=== PATIENT | female | born 1965 | race African-American/Black ===

== ENCOUNTER 2016-11-02 17:25 | Emergency (ER) | payer BC, OTHER ==
[~2016-11-02] VITALS: Ht 157.5 cm; Wt 70.0 kg
[~2016-11-02 17:25] MED LIST: GLIP1TAB18; IBUP-238; LISI-591; LORT5TAB; NEXI20CA; PROP20TA24
[2016-11-02 17:42] VITALS: BP 126/78; PULSE 98; RESP 17; TEMP 98.1; O2SAT 98
[2016-11-02] MEDS ORDERED: SODIUM CHLOR 0.9% 1000 ML INJ 1,000 ML IV ONE (17:52)
--- NOTE | 2016-11-02 17:58 | PD ---
HPI Chief Complaint: Chest Pain Time Seen by Provider: 17:58 Travel History International Travel<30 days: No Contact w/Intl Traveler<30days: No Traveled to known affect area: No History of Present Illness HPI 51 year-old female presents to the emergency department for evaluation of palpitations, chest pressure, dizziness intermittently occurring over the last 2 weeks. Patient stayed at [facility] last week for a period of 3 days for the very same symptoms. She states that she had many tests run but is uncertain which ones. She was discharged to follow-up outpatient. She came to our emergency department today stating that the symptoms continue to happen and she would like to know why. Denies any recent illnesses, fever, chills. Chest v is substernal and feels as though her heart is beating faster and harder. Denies any of the diaphoresis or lightheadedness associated with it. Dizziness is when she bends over and stands back up and feels as though she is slightly lightheaded at that time. Chest pressure in the dizziness does not seem to be related. Patient has no other symptoms to report at this time. PFSH Past Medical History Cardiovascular Problems: Yes (hypertension) Diabetes: Yes (type 2 ) Patient Takes Glucophage: Yes Diminished Hearing: No Hypertension: Yes Ulcer: Yes ?: Not Menopausal: Yes : 3 Para: 3 Past Surgical History Abdominal Surgery: Yes (C SECTIONS) Hysterectomy: Yes Social History Alcohol Use: No Tobacco Use: No Substance Use: No Allergies-Medications (Allergen,Severity, Reaction): Coded Allergies: No Known Allergies (Verified Allergy, Mild, 06/30/06) Reported Meds & Prescriptions Reported Meds & Active Scripts Active Reported Victoza Inj (Liraglutide Inj) 18 Mg/3 Ml Pen 0.6 Mg SQ DAILY Metformin (Metformin HCl) 1,000 Mg Tab 1,000 Mg PO BID With meals Metoprolol Tartrate 50 Mg Tab 50 Mg PO BID Amlodipine-Benazepril 10-20 Mg Cap 1 Cap PO DAILY Levothyroxine (Levothyroxine Sodium) 50 Mcg Tab 25-50 Mcg PO DAILY Simvastatin 10 Mg Tab 10 Mg PO DAILY Review of Systems Except as stated in HPI: all other systems reviewed are Neg Physical Exam Narrative GENERAL: Well-nourished female patient, ambulatory with a nonantalgic gait no acute distress SKIN: Focused skin assessment warm/dry. HEAD: Atraumatic. Normocephalic. EYES: Pupils equal and round. No scleral icterus. No injection or drainage. ENT: No nasal bleeding or discharge. Mucous membranes pink and moist. NECK: Trachea midline. No JVD. CARDIOVASCULAR: Elevated rate and rhythm. No murmur appreciated. RESPIRATORY: No accessory muscle use. Clear to auscultation. Breath sounds equal bilaterally. GASTROINTESTINAL: Abdomen soft, non-tender, nondistended. Hepatic and splenic margins not palpable. MUSCULOSKELETAL: No obvious deformities. No clubbing. No cyanosis. No edema. NEUROLOGICAL: Awake and alert. No obvious cranial nerve deficits. Motor grossly within normal limits. Normal speech. PSYCHIATRIC: Appropriate mood and affect; insight and judgment normal. Data Data Last Documented VS Vital Signs Date Time Temp Pulse Resp B/P Pulse Ox O2 Delivery O2 Flow Rate FiO2 11/02/16 22:06 89 14 138/74 98 11/02/16 18:10 Room Air 11/02/16 17:42 98.1 Orders Electrocardiogram (11/02/16 17:52) Basic Metabolic Panel (Bmp) (11/02/16 17:52) Complete Blood Count With Diff (11/02/16 17:52) Magnesium (Mg) (11/02/16 17:52) Prothrombin Time / Inr (Pt) (11/02/16 17:52) Urinalysis - C+S If Indicated (11/02/16 17:52) Chest, Single Ap (11/02/16 17:52) Ct Brain W/O Iv Contrast(Rout) (11/02/16 17:52) Ecg Monitoring (11/02/16 17:52) Iv Access Insert/Monitor (11/02/16 17:52) Oximetry (11/02/16 17:52) Sodium Chloride 0.9% Flush (Ns Flush) (11/02/16 18:00) Sodium Chlor 0.9% 1000 Ml Inj (Ns 1000 M (11/02/16 17:52) Al-Mag Hy-Si 40-40-4 Mg/Ml Liq (Mag-Al P (11/02/16 18:00) Lidocaine 2% Viscous (Xylocaine 2% Visco (11/02/16 18:00) Ckmb (Isoenzyme) Profile (11/02/16 17:59) Act Partial Throm Time (Ptt) (11/02/16 17:59) Troponin I (11/02/16 17:59) Ketorolac Inj (Toradol Inj) (11/02/16 19:30) Diphenhydramine Inj (Benadryl Inj) (11/02/16 19:30) Metoclopramide Inj (Reglan Inj) (11/02/16 19:30) Troponin I (11/02/16 21:18) Electrocardiogram (11/02/16 ) Labs Laboratory Tests Test 11/02/16 11/02/16 11/02/16 18:15 19:14 21:52 White Blood Count 8.3 TH/MM3 Red Blood Count 5.31 MIL/MM3 Hemoglobin 12.8 GM/DL Hematocrit 40.1 % Mean Corpuscular Volume 75.5 FL Mean Corpuscular Hemoglobin 24.2 PG Mean Corpuscular Hemoglobin 32.0 % Concent Red Cell Distribution Width 14.1 % Platelet Count 244 TH/MM3 Mean Platelet Volume 8.8 FL Neutrophils (%) (Auto) 45.5 % Lymphocytes (%) (Auto) 40.2 % Monocytes (%) (Auto) 12.7 % Eosinophils (%) (Auto) 1.2 % Basophils (%) (Auto) 0.4 % Neutrophils # (Auto) 3.8 TH/MM3 Lymphocytes # (Auto) 3.3 TH/MM3 Monocytes # (Auto) 1.0 TH/MM3 Eosinophils # (Auto) 0.1 TH/MM3 Basophils # (Auto) 0.0 TH/MM3 CBC Comment AUTO DIFF Differential Total Cells 100 Counted Neutrophils % (Manual) 35 % Band Neutrophils % 5 % Lymphocytes % 53 % Monocytes % 7 % Neutrophils # (Manual) 3.3 TH/MM3 Differential Comment FINAL DIFF MANUAL Toxic Vacuolation PRESENT Platelet Estimate NORMAL Platelet Morphology Comment ENLARGED Ovalocytes 1+ [place] Cells 1+ Keratocytes OCC Prothrombin Time 11.2 SEC Prothromb Time International 1.0 RATIO Ratio Activated Partial 23.1 SEC Thromboplast Time Sodium Level 141 MEQ/L Potassium Level 3.9 MEQ/L Chloride Level 105 MEQ/L Carbon Dioxide Level 28.1 MEQ/L Anion Gap 8 MEQ/L Blood Urea Nitrogen 8 MG/DL Creatinine 0.73 MG/DL Estimat Glomerular Filtration 102 ML/MIN Rate Random Glucose 114 MG/DL Calcium Level 9.6 MG/DL Magnesium Level 1.9 MG/DL Total Creatine Kinase 100 U/L Troponin I LESS THAN 0.02 LESS THAN 0.02 NG/ML NG/ML Urine Color LIGHT-YELLOW Urine Turbidity CLEAR Urine pH 7.0 Urine Specific [place] 1.011 Urine Protein NEG mg/dL Urine Glucose (UA) NEG mg/dL Urine Ketones NEG mg/dL Urine Occult Blood NEG Urine Nitrite NEG Urine Bilirubin NEG Urine Urobilinogen LESS THAN 2.0 MG/DL Urine Leukocyte Esterase TRACE Urine RBC 1 /hpf Urine WBC 2 /hpf Urine Squamous Epithelial <1 /hpf Cells Urine Bacteria RARE /hpf Microscopic Urinalysis Comment CULT NOT INDICATED MDM Medical Decision Making Medical Screen Exam Complete: Yes Emergency Medical Condition: Yes Medical Record Reviewed: Yes Differential Diagnosis Electrolytes abnormality versus palpitations versus bronchospasm versus esophageal spasm versus indigestion versus arrhythmia Narrative Course 51 year-old female presents to the emergency department for evaluation. Patient appears without distress. Her vital signs are stable here in the emergency department. CBC is without acute concern. BMP is also without acute concern. Troponin is less than 0.02. We have contacted [facility] for records to review findings from most recent hospital stay. 2100 and discussed the patient by attending physician Dr. Huston. We have not yet received the records from [facility]. She has reviewed the lab findings. Delta troponin will be ordered. If this is unchanged, patient will be discharged home. Plan is discussed with the patient and their family. They are in agreement with this plan of care. 2250 delta troponin is less than 0.02. Patient will be discharged home at this time. She is instructed to follow-up with her primary care provider and return immediately with any acute worsening of symptoms. Diagnosis Primary Impression: Palpitations Additional Impressions: Chest pressure Dizziness Referrals: Primary Care Physician Patient Instructions: General Instructions, Palpitations (ED) Additional Instructions: Follow-up with her primary care provider Continue all medications as already prescribed Return immediately with any acute worsening of symptoms Med/Other Pt SpecificInfo: No Change to Meds Disposition: 01 DISCHARGE HOME Condition: Stable AmariKarsonNoaraul NARANJO Nov 02, 2016 17:58
[2016-11-02] MEDS ORDERED: SODIUM CHLORIDE 0.9% FLUSH 10 ML FLUSH IVF PRN (18:00)
[2016-11-02] MEDS ORDERED: ALUMINUM/MAGNESIUM/SIMETH 30 ML CUP PO ONE (18:00)
[2016-11-02] MEDS ORDERED: LIDOCAINE VISCOUS 2% SOLN 15 ML UDC PO ONE (18:00)
[2016-11-02 18:10] VITALS: RESP 18; O2SAT 98
[2016-11-02] MEDS ORDERED: VICT18IN SQ (18:12)
[2016-11-02] MEDS ORDERED: SIMV10TA PO (18:12)
[2016-11-02] MEDS ORDERED: METO50TA PO (18:12)
[2016-11-02] MEDS ORDERED: AMLO10CA PO (18:12)
[2016-11-02] MEDS ORDERED: LEVO50TA4 PO (18:12)
[2016-11-02] MEDS ORDERED: METF1000 PO (18:12)
--- NOTE | 2016-11-02 18:43 | RADRPT ---
EXAM DATE/TIME: 11/02/2016 18:10 [facility] COMPARISON: No previous studies available for comparison. INDICATIONS : Dizziness with cephalgia for 2 weeks. RADIATION DOSE: 56.77 CTDIvol (mGy) MEDICAL HISTORY : Hypertension. Diabetes mellitus type 2. SURGICAL HISTORY : None. ENCOUNTER: Initial ACUITY: 2 weeks PAIN SCALE: 7/10 LOCATION: cranial Posterior TECHNIQUE: Multiple contiguous axial images were obtained of the head. Using automated exposure control and adj ustment of the mA and/or kV according to patient size, radiation dose was kept as low as reasonably a chievable to obtain optimal diagnostic quality images. FINDINGS: There is no evidence for intracranial hemorrhage, mass effect, mass lesions, edema, or extra-axial fl uid collections. The visualized bony structures appear intact. The ventricles are normal size for t he patient's age. There are no signs of acute infarction for technique. CONCLUSION: Unremarkable study. Bhumika Pena MD on November 02, 2016 at 18:41 Board Certified Radiologist. This report was verified electronically.
[2016-11-02 18:50] LABS: PROTHROMBIN TIME - PATIENT 11.2 SEC (9.8-11.6)
[2016-11-02 18:54] LABS: AUTOMATED NEUTROPHIL # 3.8 TH/MM3 (1.8-7.7); BASOPHIL % 0.4 % (0.0-2.0); EOSINOPHIL # 0.1 TH/MM3 (0-0.4); EOSINOPHIL % 1.2 % (0.0-4.0); HEMATOCRIT 40.1 % (35.0-46.0); LYMPH % 40.2 % (9.0-44.0); LYMPHOCYTE # 3.3 TH/MM3 (1.0-4.8); MEAN CELL VOLUME 75.5 FL (80.0-100.0); MEAN CORPUSCULAR HEMOGLOBIN 24.2 PG (27.0-34.0); MONO % 12.7 % (0.0-8.0); NEUT % 45.5 % (16.0-70.0); PLATELET COUNT 244 TH/MM3 (150-450); RED BLOOD COUNT 5.31 MIL/MM3 (4.00-5.30); RED CELL DISTRIBUTION WIDTH 14.1 % (11.6-17.2); WHITE BLOOD COUNT 8.3 TH/MM3 (4.0-11.0)
--- NOTE | 2016-11-02 18:55 | RADRPT ---
EXAM DATE/TIME: 11/02/2016 18:24 [facility] COMPARISON: No previous studies available for comparison. INDICATIONS : Patient has had continuous chest pain. Patient was at [facility] over the weekend for t he same complaint. MEDICAL HISTORY : None. SURGICAL HISTORY : None. ENCOUNTER: Initial ACUITY: 1 week PAIN SCORE: 8/10 LOCATION: Bilateral chest FINDINGS: The lungs are clear without infiltrate, nodule, or mass. There is no appreciable pleural effusion fo r technique. Heart and mediastinum are unremarkable. There is prominence of the perivascular marking s with crowding of the bronchovascular markings may be due to expiratory state of this radiograph, ho wever slight interstitial process is not excluded. CONCLUSION: No definite acute cardiopulmonary disease. Bhumika Pena MD on November 02, 2016 at 18:53 Board Certified Radiologist. This report was verified electronically.
[2016-11-02 18:57] LABS: BICARBONATE 28.1 MEQ/L (21.0-32.0); MAGNESIUM 1.9 MG/DL (1.5-2.5); POTASSIUM 3.9 MEQ/L (3.5-5.1)
[2016-11-02 19:00] VITALS: BP 150/82; PULSE 96; RESP 18; O2SAT 97
[2016-11-02 19:05] LABS: APTT (PATIENT) 23.1 SEC (24.3-30.1)
[2016-11-02 19:21] LABS: CREATINE KINASE 100 U/L (26-192)
[2016-11-02 19:27] LABS: HEMO FLAGS AUTO DIFF
[2016-11-02 19:28] LABS: BACTERIA, URINE RARE /hpf; BLOOD, URINE NEG (NEG); COMMENT (UR) CULT NOT INDICATED; CULTURE IF INDICATED CULT NOT INDICATED; GLUCOSE,URINE NEG (NEG); KETONE, URINE NEG (NEG); NITRITE,URINE NEG (NEG); SQUAMOUS EPITHELIAL CELL URINE <1 /hpf (0-5); URINE COLOR LIGHT-YELLOW (YELLW/STRAW)
[2016-11-02] MEDS ORDERED: diphenhydrAMINE HCL 50 MG/ML VIAL IV PUSH ONE (19:30)
[2016-11-02] MEDS ORDERED: METOCLOPRAMIDE HCL 10 MG/2 ML VIAL IV PUSH ONE (19:30)
[2016-11-02] MEDS ORDERED: KETOROLAC TROMETHAMINE 30 MG/ML (IVP) VIAL IV PUSH ONE (19:30)
[2016-11-02 20:13] VITALS: BP 144/76; PULSE 92; RESP 16; O2SAT 99
[2016-11-02 21:05] LABS: BANDS 5 % (0-6); NEUTROPHIL # MANUAL DIFF 3.3 TH/MM3 (1.8-7.7); POLYS (SEG NEUTROPHILS) 35 % (16-70); WBC DIFF SAMPLE 100
[2016-11-02 21:06] LABS: BURR CELLS 1+ (NORMAL); OVALOCYTES 1+ (NORMAL)
[2016-11-02 21:07] LABS: KERATOCYTES OCC (NORMAL); PLATELET ESTIMATE SMEAR NORMAL (NORMAL); PLATELET MORPHOLOGY ENLARGED (NORMAL); TOXIC VACUOLATION PRESENT (NONE SEEN)
[2016-11-02 21:08] LABS: SCAN/DIFF FINAL DIFF MANUAL
[2016-11-02 22:06] VITALS: BP 138/74; PULSE 89; RESP 14; O2SAT 98
--- NOTE | 2016-11-03 13:50 | EKG ---
Date Performed: 11/02/2016 Time Performed: 22:06:45 PTAGE: 51 years EKG: Sinus rhythm NORMAL ECG Compared to prior tracing no significant change PREVIOUS TRACING : 11/02/2016 17.57 DOCTOR: Puneet Guillen Interpretating Date/Time 11/03/2016 13:42:54
--- NOTE | 2016-11-03 13:50 | EKG ---
Date Performed: 11/02/2016 Time Performed: 17:57:19 PTAGE: 51 years EKG: Sinus rhythm POSSIBLE LEFT ATRIAL ENLARGEMENT BORDERLINE ECG NO PREVIOUS TRACING DOCTOR: Puneet Guillen Interpretating Date/Time 11/03/2016 13:42:46
== END 2016-11-02 23:12 | disposition home or self-care (01) ==
LOC: NEPE 17:25
DX: R00.2 Palpitations (principal); R42 Dizziness and giddiness; I10 Essential (primary) hypertension; E11.9 Type 2 diabetes mellitus without complications; Z79.4 Long term (current) use of insulin
CPT/HCPCS: 70450; 71010; 80048; 81001; 82550; 83735; 84484; 85007; 85027; 85610; 85730; 93005; 96361; 96374; 96375; 99285; J1200; J1885; J2765; J7030